=== PATIENT | male | born 1985 | race Hispanic/Latino ===

== ENCOUNTER 2019-03-07 11:59 | Emergency (ER) | payer SELFPAY ==
--- NOTE | 2019-03-07 13:18 | RAD REPORT ---
EXAM DESCRIPTION: RAD - Knee Left 3 View - 03/07/2019 12:42 pm CLINICAL HISTORY: Left knee pain after injury FINDINGS: No fracture or dislocation is seen. No significant bone or joint abnormality seen
--- NOTE | 2019-03-07 13:36 | ER ---
Nurse's Notes [facility] Name: Miguel Brumfield Age: 33 yrs Sex: Male : 1985 Arrival Date: 03/07/2019 Time: 12:02 Bed 24 Private MD: Diagnosis: Pain in left knee;Abrasion of knee-left;Blister (nonthermal) of foot-right plantar surface Presentation: 03/07 12:05 Presenting complaint: Knee pain 9/10 after wrestling with family yesterday, painful hb blister on bottom of foot x 3 days. Transition of care: patient was not received from another setting of care. Onset of symptoms was March 05, 2019. Risk Assessment: Do you want to hurt yourself or someone else? Patient reports no desire to harm self or others. Initial Sepsis Screen: Does the patient meet any 2 criteria? No. Patient's initial sepsis screen is negative. Does the patient have a suspected source of infection? No. Patient's initial sepsis screen is negative. Care prior to arrival: None. 12:05 Method Of Arrival: Wheelchair hb 12:05 Acuity: SHELL 4 hb Historical: - Allergies: 12:06 No Known Allergies; hb - PMHx: 12:06 drug abuse; hypertension-intermittantly; hb - PSHx: 12:06 None; hb - Immunization history:: Adult Immunizations up to date. - Social history:: Smoking status: Patient uses tobacco products, smokes one pack cigarettes per day. - Ebola Screening: : No symptoms or risks identified at this time. Screenin:12 Abuse screen: Denies threats or abuse. Denies injuries from another. Nutritional ca1 screening: No deficits noted. Tuberculosis screening: No symptoms or risk factors identified. Fall Risk None identified. Assessment: 12:12 General: Appears in no apparent distress. comfortable, Behavior is calm, cooperative, ca1 appropriate for age. Pain: Complains of pain in left knee Pain currently is 9 out of 10 on a pain scale. Pain began this morning Aggravated by weight bearing. Neuro: Level of Consciousness is awake, alert, obeys commands, Oriented to person, place, time, situation. Cardiovascular: Heart tones S1 S2 present Capillary refill < 3 seconds Patient's skin is warm and dry. Respiratory: Airway is patent Respiratory effort is even, unlabored, Respiratory pattern is regular, symmetrical, Breath sounds are clear bilaterally. GI: Abdomen is flat, non-distended, Bowel sounds present X 4 quads. : No deficits noted. No signs and/or symptoms were reported regarding the genitourinary system. EENT: No deficits noted. No signs and/or symptoms were reported regarding the EENT system. Derm: Skin is healthy with good turgor, Skin is pink, warm \T\ dry. Musculoskeletal: Circulation, motion, and sensation intact. Capillary refill < 3 seconds, Range of motion: limited in left knee. Injury Description: Abrasion sustained to left knee is dirty, was sustained 12-24 hours ago. 13:30 Reassessment: Patient appears in no apparent distress at this time. Patient and/or ca1 family updated on plan of care and expected duration. Pain level reassessed. Patient is alert, oriented x 3, equal unlabored respirations, skin warm/dry/pink. Vital Signs: 12:06 BP 126 / 76; Pulse 92; Resp 16; Temp 97.8; Pulse Ox 99% on R/A; Weight 81.65 kg; Height hb 5 ft. 8 in. (172.72 cm); Pain 9/10; 13:30 BP 121 / 69; Pulse 89; Resp 14 S; Temp 98(O); Pulse Ox 100% ; ca1 12:06 Body Mass Index 27.37 (81.65 kg, 172.72 cm) hb ED Course: 12:02 Patient arrived in ED. as 12:06 Triage completed. hb 12:06 Arm band placed on. hb 12:08 Mariely Wiley, RN is Primary Nurse. ca1 12:12 Patient has correct armband on for positive identification. Bed in low position. Call ca1 light in reach. Side rails up X 1. Pulse ox on. NIBP on. 12:12 No provider procedures requiring assistance completed. Patient did not have IV access ca1 during this emergency room visit. Wound care: to abrasion, located on left knee was cleaned with Hibiclens, Patient tolerated well. 12:13 Jeffrey Posada PA is PHCP. cp 12:13 Malcolm Wu MD is Attending Physician. cp 12:38 X-ray completed. Portable x-ray completed in exam room. Patient tolerated procedure jb2 well. 12:40 XRAY Knee LEFT 3 view In Process Unspecified. EDMS 13:34 Aldo Lim MD is Referral Physician. cp 13:48 Dressings: Kerlix X 1; right foot non-adherent dressing x 1 left knee 4X4s X 2; right ca1 foot. Knee immobilizer applied on left knee. 13:50 Crutch training done. ca1 Administered Medications: 13:35 Drug: Ibuprofen 800 mg Route: PO; ca1 14:01 Follow up: Response: No adverse reaction; Pain is decreased ca1 13:43 Drug: Tylenol 1000 mg Route: PO; ca1 14:01 Follow up: Response: No adverse reaction; Pain is decreased ca1 Outcome: 13:35 Discharge ordered by MD. cp 14:02 Discharged to home via wheelchair, with crutches, with significant other. ca1 14:02 Condition: stable 14:02 Discharge instructions given to patient, Instructed on discharge instructions, follow up and referral plans. medication usage, crutch walking, wound care, Demonstrated understanding of instructions, follow-up care, medications, wound care, crutch walking, Prescriptions given X 1. 14:03 Patient left the ED. ca1 Signatures: Dispatcher [employer] EDMO Evangelist Montez2 Tammie Lino Corey, PA PA Rubia Colon, RIVAS RN Mariely Wiley RN RN ca1
--- NOTE | 2019-03-07 13:36 | EDPHYS ---
Physician Documentation [facility] Name: Miguel Brumfield Age: 33 yrs Sex: Male : 1985 Arrival Date: 03/07/2019 Time: 12:02 Bed 24 Private MD: ED Physician Malcolm Wu HPI: 03/07 12:35 This 33 yrs old Male presents to ER via Wheelchair with complaints of Knee cp Injury, Foot Pain. 12:35 The patient presents with pain, that is acute. The complaints affect the left knee. cp Context: resulted from wrestling with child yesterday, the patient can fully bear weight, the patient is able to ambulate, with mild difficulty. 12:35 Patient also concerned about blister on bottom of right foot. cp Historical: - Allergies: 12:06 No Known Allergies; hb - PMHx: 12:06 drug abuse; hypertension-intermittantly; hb - PSHx: 12:06 None; hb - Immunization history:: Adult Immunizations up to date. - Social history:: Smoking status: Patient uses tobacco products, smokes one pack cigarettes per day. - Ebola Screening: : No symptoms or risks identified at this time. ROS: 12:40 Constitutional: Negative for body aches, chills, fever, poor PO intake. cp 12:40 Eyes: Negative for injury, pain, redness, and discharge. cp 12:40 ENT: Negative for drainage from ear(s), ear pain, sore throat, difficulty swallowing, difficulty handling secretions. 12:40 Cardiovascular: Negative for chest pain. 12:40 Respiratory: Negative for cough, shortness of breath, wheezing. 12:40 Abdomen/GI: Negative for abdominal pain, nausea, vomiting, and diarrhea. 12:40 MS/extremity: Positive for pain, tenderness, of the left knee. 12:40 Skin: Positive for of the plantar surface of left foot, blister. 12:40 All other systems are negative. Exam: 12:50 Constitutional: The patient appears in no acute distress, alert, awake, non-toxic, well cp developed, well nourished. 12:50 Head/Face: Normocephalic, atraumatic. cp 12:50 Musculoskeletal/extremity: ROM: limited passive range of motion due to pain, in the left knee, Joints: All joints are normal except the left knee displays painful range of motion, tenderness. 12:50 Skin: cellulitis, is not appreciated, small ulcerated wound to plantar surface of right foot w/o erythema or swelling or drainage. 12:50 Skin: injury, abrasion(s), of the left knee and left foot and right foot. cp Vital Signs: 12:06 BP 126 / 76; Pulse 92; Resp 16; Temp 97.8; Pulse Ox 99% on R/A; Weight 81.65 kg; Height hb 5 ft. 8 in. (172.72 cm); Pain 9/10; 13:30 BP 121 / 69; Pulse 89; Resp 14 S; Temp 98(O); Pulse Ox 100% ; ca1 12:06 Body Mass Index 27.37 (81.65 kg, 172.72 cm) hb Procedures: 13:30 Splinting: Splint applied to left knee using knee immobilizer, applied by nurse. cp Examined by me, post splint application: neurovascular intact, Patient tolerated well. MDM: 12:23 Patient medically screened. cp 13:35 Data reviewed: vital signs, nurses notes, radiologic studies, plain films, and as a cp result, I will discharge patient. 13:35 Differential diagnosis: dislocation, closed fracture, contusion, ligament injury. cp Counseling: I had a detailed discussion with the patient and/or guardian regarding: the historical points, exam findings, and any diagnostic results supporting the discharge/admit diagnosis, radiology results, to return to the emergency department if symptoms worsen or persist or if there are any questions or concerns that arise at home. 03/07 12:25 Order name: XRAY Knee LEFT 3 view; Complete Time: 13:31 cp 03/07 12:25 Order name: Wound Care: irrigate and clean wounds; Complete Time: 12:31 cp 03/07 13:33 Order name: Knee Immobilizer; Complete Time: 13:47 cp 03/07 13:33 Order name: Crutches; Complete Time: 13:47 cp 03/07 13:33 Order name: Wound dressing: bacitracin ointment; Complete Time: 13:47 cp Administered Medications: 13:35 Drug: Ibuprofen 800 mg Route: PO; ca1 14:01 Follow up: Response: No adverse reaction; Pain is decreased ca1 13:43 Drug: Tylenol 1000 mg Route: PO; ca1 14:01 Follow up: Response: No adverse reaction; Pain is decreased ca1 Disposition: 03/07/19 13:35 Discharged to Home. Impression: Pain in left knee, Abrasion of knee - left, Blister (nonthermal) of foot - right plantar surface. - Condition is Stable. - Discharge Instructions: Knee Immobilizer, Knee Pain, Wound Care. - Prescriptions for ketoprofen 50 mg Oral capsule - take 1 capsule by ORAL route every 6 hours; 30 capsule. - Medication Reconciliation Form, Thank You Letter, Antibiotic Education, Prescription Opioid Use, Work release form form. - Follow up: Aldo Lim MD; When: 2 - 3 days; Reason: left knee injury. - Problem is new. - Symptoms have improved. Addendum: 03/10/2019 09:09 Co-signature as Attending Physician, Malcolm Wu MD I agree with the assessment and k dr plan of care. Signatures: Dispatcher [employer] EDMS Malcolm Wu MD MD [facility] Jeffrey Posada PA PA cp Rubia Parada RN RN Mariely Wiley RN RN ca1 Corrections: (The following items were deleted from the chart) 03/07 14:03 13:35 03/07/2019 13:35 Discharged to Home. Impression: Pain in left knee; Abrasion of ca1 knee - left; Blister (nonthermal) of foot - right plantar surface. Condition is Stable. Forms are Medication Reconciliation Form, Thank You Letter, Antibiotic Education, Prescription Opioid Use. Follow up: Dr. Aldo Lim; When: 2 - 3 days; Reason: left knee injury. Problem is new. Symptoms have improved. cp
[2019-03-07] MEDS ORDERED: IBUPROFEN 400 MG TAB ONE (13:39)
[2019-03-07] MEDS ORDERED: ACETAMINOPHEN 500 MG TAB ONE (13:39)
== END 2019-03-07 14:03 | disposition home or self-care (01) ==
LOC: ER 11:59
DX: S80.212A Abrasion, left knee, initial encounter (principal); S90.821A Blister (nonthermal), right foot, initial encounter; Y93.83 Activity, rough housing and horseplay; F17.210 Nicotine dependence, cigarettes, uncomplicated
CPT/HCPCS: 99284

== ENCOUNTER 2019-03-16 12:25 | Emergency (ER) | payer SELFPAY ==
--- NOTE | 2019-03-16 12:51 | EDPHYS ---
Physician Documentation [facility] Name: Miguel Brumfield Age: 33 yrs Sex: Male : 1985 Arrival Date: 03/16/2019 Time: 12:26 Bed 11 Private MD: ED Physician Jeffrey Lora HPI: 03/16 12:50 This 33 yrs old Male presents to ER via Ambulatory with complaints of Needs kb work release. 12:50 Pt reports he was here 9 days ago because he hurt his knee and he had a blister on the kb bottom of his foot. Had a note to return to work last Sunday, but took the week off so he needs a note to return this Sunday (tomorrow). States "I didn't think I needed to follow up because I'm all good now. I healed up good." Pt has no complaints. Here for work note only. The patient has not experienced similar symptoms in the past. The patient has been recently seen at the [facility] Emergency Department, a couple of weeks ago. Historical: - Allergies: 12:49 No Known Allergies; iw - PMHx: 12:49 drug abuse; hypertension-intermittantly; iw - PSHx: 12:49 None; iw - Immunization history:: Adult Immunizations unknown. - Social history:: Smoking status: unknown. - Ebola Screening: : Patient negative for fever greater than or equal to 101.5 degrees Fahrenheit, and additional compatible Ebola Virus Disease symptoms Patient denies exposure to infectious person Patient denies travel to an Ebola-affected area in the 21 days before illness onset No symptoms or risks identified at this time. ROS: 12:50 Constitutional: Negative for fever, chills, and weight loss, Neck: Negative for injury, kb pain, and swelling, Cardiovascular: Negative for chest pain, palpitations, and edema, Respiratory: Negative for shortness of breath, cough, wheezing, and pleuritic chest pain, Abdomen/GI: Negative for abdominal pain, nausea, vomiting, diarrhea, and constipation, Back: Negative for injury and pain, MS/Extremity: Negative for injury and deformity, Skin: Negative for injury, rash, and discoloration, Neuro: Negative for headache, weakness, numbness, tingling, and seizure. Exam: 12:50 Constitutional: This is a well developed, well nourished patient who is awake, alert, kb and in no acute distress. Head/Face: Normocephalic, atraumatic. ENT: Nares patent. No nasal discharge, no septal abnormalities noted. Tympanic membranes are normal and external auditory canals are clear. Oropharynx with no redness, swelling, or masses, exudates, or evidence of obstruction, uvula midline. Mucous membranes moist. Neck: Trachea midline, no thyromegaly or masses palpated, and no cervical lymphadenopathy. Supple, full range of motion without nuchal rigidity, or vertebral point tenderness. No Meningismus. Chest/axilla: Normal chest wall appearance and motion. Nontender with no deformity. No lesions are appreciated. Cardiovascular: Regular rate and rhythm with a normal S1 and S2. No gallops, murmurs, or rubs. Normal PMI, no JVD. No pulse deficits. Respiratory: Lungs have equal breath sounds bilaterally, clear to auscultation and percussion. No rales, rhonchi or wheezes noted. No increased work of breathing, no retractions or nasal flaring. Abdomen/GI: Soft, non-tender, with normal bowel sounds. No distension or tympany. No guarding or rebound. No evidence of tenderness throughout. Skin: Warm, dry with normal turgor. Normal color with no rashes, no lesions, and no evidence of cellulitis. MS/ Extremity: Pulses equal, no cyanosis. Neurovascular intact. Full, normal range of motion. Neuro: Awake and alert, GCS 15, oriented to person, place, time, and situation. Cranial nerves II-XII grossly intact. Motor strength 5/5 in all extremities. Sensory grossly intact. Cerebellar exam normal. Normal gait. Vital Signs: 12:48 BP 130 / 74; Pulse 84; Resp 16; Pulse Ox 100% on R/A; iw MDM: 12:40 Patient medically screened. kb 12:49 Data reviewed: vital signs, nurses notes. Data interpreted: Pulse oximetry: on room air kb is 100 %. Interpretation: normal. Counseling: I had a detailed discussion with the patient and/or guardian regarding: the historical points, exam findings, and any diagnostic results supporting the discharge/admit diagnosis, the need for outpatient follow up, a family practitioner, to return to the emergency department if symptoms worsen or persist or if there are any questions or concerns that arise at home. Administered Medications: No medications were administered Disposition: 12:49 Encounter for medical release for work. kb 03/17 10:26 Co-signature as Attending Physician, Jeffrey Lora MD I agree with the assessment and martita plan of care. Disposition: 03/16/19 12:49 Discharged to Home. Impression: Encounter for screening, unspecified. - Condition is Stable. - Medication Reconciliation Form, Thank You Letter, Antibiotic Education, Prescription Opioid Use form. - Follow up: Emergency Department; When: As needed; Reason: Worsening of condition. Follow up: Private Physician; When: 2 - 3 days; Reason: Recheck today's complaints, Continuance of care, Re-evaluation by your physician. Signatures: Elen Pimentel, CHARBEL-C CHARBEL-Jeffrey Kennedy MD MD cha Williams, Irene RN RN iw Corrections: (The following items were deleted from the chart) 03/16 12:56 12:49 03/16/2019 12:49 Discharged to Home. Impression: Encounter for screening, iw unspecified. Condition is Stable. Forms are Medication Reconciliation Form, Thank You Letter, Antibiotic Education, Prescription Opioid Use. Follow up: Emergency Department; When: As needed; Reason: Worsening of condition. Follow up: Private Physician; When: 2 - 3 days; Reason: Recheck today's complaints, Continuance of care, Re-evaluation by your physician. kb
--- NOTE | 2019-03-16 12:51 | ER ---
Nurse's Notes [facility] Name: Miguel Brumfield Age: 33 yrs Sex: Male : 1985 Arrival Date: 03/16/2019 Time: 12:26 Bed 11 Private MD: Diagnosis: Encounter for screening, unspecified Presentation: 03/16 12:47 Presenting complaint: Patient states: needs a work note for this Sunday, was seen here iw last week and was told to follow up with ortho but said he was feeling better so he didn't follow up. Transition of care: patient was not received from another setting of care. Onset of symptoms was March 09, 2019. Risk Assessment: Do you want to hurt yourself or someone else? Patient reports no desire to harm self or others. Initial Sepsis Screen: Does the patient meet any 2 criteria? No. Patient's initial sepsis screen is negative. Does the patient have a suspected source of infection? No. Patient's initial sepsis screen is negative. Care prior to arrival: None. 12:47 Method Of Arrival: Ambulatory iw 12:47 Acuity: SHELL 5 iw Triage Assessment: 12:50 General: Appears in no apparent distress. Behavior is calm. iw Historical: - Allergies: 12:49 No Known Allergies; iw - PMHx: 12:49 drug abuse; hypertension-intermittantly; iw - PSHx: 12:49 None; iw - Immunization history:: Adult Immunizations unknown. - Social history:: Smoking status: unknown. - Ebola Screening: : Patient negative for fever greater than or equal to 101.5 degrees Fahrenheit, and additional compatible Ebola Virus Disease symptoms Patient denies exposure to infectious person Patient denies travel to an Ebola-affected area in the 21 days before illness onset No symptoms or risks identified at this time. Screenin:55 Abuse screen: Denies threats or abuse. Denies injuries from another. Nutritional iw screening: No deficits noted. Tuberculosis screening: No symptoms or risk factors identified. Fall Risk None identified. Assessment: 12:50 General: Appears in no apparent distress. Behavior is calm, cooperative. Pain: Denies iw pain. Neuro: Level of Consciousness is awake, alert, obeys commands, Oriented to person, place, time, situation, Moves all extremities. Cardiovascular: Patient's skin is warm and dry. Respiratory: Respiratory effort is even, unlabored, Respiratory pattern is regular. Derm: Skin is intact, is healthy with good turgor. Musculoskeletal: Range of motion: intact in all extremities. Vital Signs: 12:48 BP 130 / 74; Pulse 84; Resp 16; Pulse Ox 100% on R/A; iw ED Course: 12:26 Patient arrived in ED. as 12:39 Elen Pimentel FNP-C is [facility]. kb 12:39 Jeffrey Lora MD is Attending Physician. kb 12:45 Maddie Stokes, RN is Primary Nurse. iw 12:48 Triage completed. iw 12:49 Arm band placed on. iw 12:49 Patient has correct armband on for positive identification. iw 12:55 No provider procedures requiring assistance completed. Patient did not have IV access iw during this emergency room visit. Administered Medications: No medications were administered Outcome: 12:49 Discharge ordered by MD. kb 12:55 Following a medical screening exam, the patient was provided information regarding iw alternative care sites and resources available per registration personnel. 12:55 Medical screen evaluation completed per provider. Patient declined treatment. iw 12:55 Condition: good 12:56 Patient left the ED. iw Signatures: Elen Pimentel FNP-C FNP-Tammie Navas as Maddie Stokes, RN RN iw
== END 2019-03-16 12:56 | disposition home or self-care (01) ==
LOC: ER 12:25
DX: Z00.8 Encounter for other general examination (principal); I10 Essential (primary) hypertension; F19.11 Other psychoactive substance abuse, in remission
CPT/HCPCS: 99281

== ENCOUNTER 2021-05-12 13:16 | Emergency (ER) | payer SELFPAY ==
[2021-05-12] MEDS ORDERED: KETOROLAC 30 MG/ML INJ ONE (13:59)
--- NOTE | 2021-05-12 14:51 | RAD REPORT ---
EXAM DESCRIPTION: RAD - Ribs Left - 05/12/2021 2:13 pm CLINICAL HISTORY: Left-sided rib pain following coughing COMPARISON: None. FINDINGS: No displaced rib fracture is seen and no non-displaced rib fractures suspected. No aggress audie rib lesion. No underlying pneumothorax, effusion, infiltrate or pulmonary contusion. IMPRESSION: Negative left rib series.
--- NOTE | 2021-05-12 16:14 | ER ---
Nurse's Notes [facility] Name: Miguel Brumfield Age: 35 yrs Sex: Male : 1985 Arrival Date: 05/12/2021 Time: 13:17 Bed 7 Private MD: Diagnosis: Intercostal Strain Presentation: 05/12 13:22 Chief complaint: Patient states: LUQ/left rib pain x 3 days, hurts worse with coughing jl7 or sneezing or taking a deep breath in, denies trauma, reports covid positive x 15 days ago. Coronavirus screen: Vaccine status: Patient reports being unvaccinated. At this time, the client does not indicate any symptoms associated with coronavirus-19. Ebola Screen: No symptoms or risks identified at this time. Initial Sepsis Screen: Does the patient meet any 2 criteria? No. Patient's initial sepsis screen is negative. Does the patient have a suspected source of infection? No. Patient's initial sepsis screen is negative. Risk Assessment: Do you want to hurt yourself or someone else? Patient reports no desire to harm self or others. Onset of symptoms was May 09, 2021. 13:22 Method Of Arrival: Ambulatory [facility] 13:22 Acuity: SHELL 3 jl7 Triage Assessment: 13:25 General: Appears in no apparent distress. uncomfortable, Behavior is calm, cooperative. jl7 Pain: Complains of pain in anterior aspect of right lateral abdomen and left upper quadrant Pain currently is 7 out of 10 on a pain scale. Historical: - Allergies: 13:25 No Known Allergies; jl7 - Home Meds: 13:25 None [Active]; jl7 - PMHx: 13:25 drug abuse; hypertension-intermittantly; jl7 - PSHx: 13:25 None; jl7 - Immunization history:: Adult Immunizations not up to date, Client reports having NOT received the Covid vaccine. - Social history:: Smoking status: Patient denies any tobacco usage or history of. Patient uses alcohol, on a daily basis. street drugs, marijuana. Screenin:27 Abuse screen: Denies threats or abuse. Denies injuries from another. Nutritional ld1 screening: No deficits noted. Tuberculosis screening: No symptoms or risk factors identified. Fall Risk None identified. Assessment: 13:40 General: Appears comfortable, Behavior is calm, cooperative. Pain: Complains of pain in aa5 anterior aspect of left lateral abdomen, left lower rib cage Pain currently is 7 out of 10 on a pain scale. Quality of pain is described as sharp, Is intermittent, Aggravated by coughing, taking a deep breath. Neuro: Level of Consciousness is awake, alert, obeys commands, Oriented to person, place, time, situation. Cardiovascular: Patient's skin is warm and dry. Respiratory: Airway is patent Respiratory effort is even, unlabored, Respiratory pattern is regular, symmetrical. GI: No signs and/or symptoms were reported involving the gastrointestinal system. Patient currently denies diarrhea, nausea, vomiting. : No signs and/or symptoms were reported regarding the genitourinary system. Denies burning with urination, inability to void, urinary frequency, urgency. EENT: No signs and/or symptoms were reported regarding the EENT system. Derm: Skin is pink, warm \T\ dry. Musculoskeletal: Range of motion: intact in all extremities. 15:11 Reassessment: Patient is alert, oriented x 3, equal unlabored respirations, skin aa5 warm/dry/pink. Patient states symptoms have not improved. 16:26 Reassessment: Patient appears in no apparent distress at this time. Patient and/or ld1 family updated on plan of care and expected duration. Pain level reassessed. Vital Signs: 13:22 BP 132 / 79; Pulse 93; Resp 17; Temp 97.6; Pulse Ox 100% ; Weight 81.65 kg; Height 5 jl7 ft. 8 in. (172.72 cm); Pain 7/10; 16:26 BP 129 / 77; Pulse 88; Resp 18; Pulse Ox 100% on R/A; ld1 13:22 Body Mass Index 27.37 (81.65 kg, 172.72 cm) jl7 ED Course: 13:17 Patient arrived in ED. am2 13:20 Demetrio Díaz PA is PHCP. [facility] 13:20 Jeffrey Lora MD is Attending Physician. jmm 13:25 Triage completed. jl7 13:25 Arm band placed on right wrist. jl7 13:32 Pricilla Kaiser, RIVAS is Primary Nurse. aa5 14:11 Ribs Left XRAY In Process Unspecified. EDMS 16:27 Patient has correct armband on for positive identification. Placed in gown. Bed in low ld1 position. Call light in reach. Side rails up X2. Pulse ox on. NIBP on. 16:27 No provider procedures requiring assistance completed. Patient did not have IV access ld1 during this emergency room visit. Administered Medications: 13:38 Drug: Ketorolac 30 mg Route: IM; Site: right gluteus; aa5 14:00 Follow up: Response: No adverse reaction aa5 Outcome: 16:14 Discharge ordered by MD. crenshaw 16:27 Discharged to home ambulatory. ld1 16:27 Condition: stable 16:27 Discharge instructions given to patient, Instructed on discharge instructions, follow up and referral plans. medication usage, Demonstrated understanding of instructions, follow-up care, medications, Prescriptions given X 1. 16:28 Patient left the ED. ld1 Signatures: Dispatcher [employer] EDMS Demetrio Díaz PA PA jmm Calderon, Audri, RN RN aa5 Yenni Addison RN RN jl7 Litzy Wills am2 Leora Ramsey RN RN ld1
--- NOTE | 2021-05-12 16:15 | EDPHYS ---
Physician Documentation [facility] Name: Miguel Brumfield Age: 35 yrs Sex: Male : 1985 Arrival Date: 05/12/2021 Time: 13:17 Bed 7 Private MD: MACKENZIE Physician Jeffrey Lora HPI: 05/12 13:30 This 35 yrs old Male presents to ER via Ambulatory with complaints of Flank jmm Pain - left. 13:30 The patient complains of pain in the left flank. The pain does not radiate. Onset: The jmm symptoms/episode began/occurred acutely, 2 day(s) ago. This is a 35-year-old male with history of hypertension the presents emerged part with complaints of left flank and rib pain beginning after he states he took a deep it off marijuana joint. Patient states that since then he has had pain on deep inspiration and coughing. Denies vomiting, hematuria, fever, abdominal pain.. Historical: - Allergies: 13:25 No Known Allergies; jl7 - Home Meds: 13:25 None [Active]; jl7 - PMHx: 13:25 drug abuse; hypertension-intermittantly; jl7 - PSHx: 13:25 None; jl7 - Immunization history:: Adult Immunizations not up to date, Client reports having NOT received the Covid vaccine. - Social history:: Smoking status: Patient denies any tobacco usage or history of. Patient uses alcohol, on a daily basis. street drugs, marijuana. ROS: 13:30 Constitutional: Negative for fever, chills, and weight loss, Cardiovascular: Negative jmm for chest pain, palpitations, and edema, Respiratory: Negative for shortness of breath, cough, wheezing, and pleuritic chest pain, Abdomen/GI: Negative for abdominal pain, nausea, vomiting, diarrhea, and constipation. 13:30 Back: Positive for flank pain. 13:30 All other systems are negative. Exam: 13:30 Constitutional: This is a well developed, well nourished patient who is awake, alert, jmm and in no acute distress. Head/Face: atraumatic. Eyes: EOMI, no conjunctival erythema appreciated ENT: Moist Mucus Membranes Neck: Trachea midline, Supple 13:30 Respiratory: Normal respirations, no respiratory distress appreciated Abdomen/GI: Non distended, soft Back: Normal ROM Skin: General appearance color normal MS/ Extremity: Moves all extremities, no obvious deformities appreciated, no edema noted to the lower extremities Neuro: Awake and alert, normal gait Psych: Behavior is normal, Mood is normal, Patient is cooperative and pleasant 13:30 Cardiovascular: Left left lateral rib pain on palpation. Vital Signs: 13:22 BP 132 / 79; Pulse 93; Resp 17; Temp 97.6; Pulse Ox 100% ; Weight 81.65 kg; Height 5 jl7 ft. 8 in. (172.72 cm); Pain 7/10; 16:26 BP 129 / 77; Pulse 88; Resp 18; Pulse Ox 100% on R/A; ld1 13:22 Body Mass Index 27.37 (81.65 kg, 172.72 cm) jl7 MDM: 13:30 Patient medically screened. [facility] 16:10 Data reviewed: vital signs, nurses notes. Counseling: I had a detailed discussion with flower the patient and/or guardian regarding: the historical points, exam findings, and any diagnostic results supporting the discharge/admit diagnosis, radiology results, the need for outpatient follow up, to return to the emergency department if symptoms worsen or persist or if there are any questions or concerns that arise at home. ED course: Physical exam physical exam and history most likely consistent with a rib injury, x-rays negative but may be due to a strain of the intercostal muscles. Patient has no abdominal pain, hematuria, vomiting, I do not currently suspect kidney stone or ureteral stone but patient is advised to return to the ED if symptoms worsen or if he develops any other symptoms. Patient understood and agrees plan of care. 05/12 13:31 Order name: Ribs Left XRAY; Complete Time: 15:[address] [facility] Administered Medications: 13:38 Drug: Ketorolac 30 mg Route: IM; Site: right gluteus; aa5 14:00 Follow up: Response: No adverse reaction aa5 Disposition Summary: 05/12/21 16:14 Discharge Ordered Location: Home flower Condition: Stable flower Diagnosis - Intercostal Strain magnolia Followup: flower - With: Private Physician - When: 2 - 3 days - Reason: Recheck today's complaints, Continuance of care, Re-evaluation by your physician Discharge Instructions: - Discharge Summary Sheet flower - Rib Contusion magnolia Forms: - Medication Reconciliation Form flower - Thank You Letter jmyoung - Antibiotic Education flower - Prescription Opioid Use [facility] Prescriptions: - orphenadrine citrate 100 mg Oral Tablet Sustained Release - take 1 tablet by ORAL route 2 times per day As needed; 20 tablet; Refills: 0, flower Product Selection Permitted Addendum: 05/16/2021 06:57 Co-signature as Attending Physician, Jeffrey Lora MD I agree with the assessment and c velazco plan of care. Signatures: Dispatcher [employer] EDJeffrey Whitley MD MD cha Mickail, Joel, PA PA jmm Calderon, Audri, RN RN aa5 Yenni Addison RN RN jl7
[2021-05-12 16:43] VITALS: TEMP 97.6; O2SAT 100
[2021-05-12 16:44] VITALS: BP 129/77
== END 2021-05-12 16:28 | disposition home or self-care (01) ==
LOC: ER 13:16
DX: S29.019A Strain of muscle and tendon of unspecified wall of thorax, initial encounter (principal)
CPT/HCPCS: 96372; 99284

== ENCOUNTER 2024-07-26 17:45 | Emergency (ER) | payer OTHER, SELFPAY ==
--- OUTSIDE RECORDS SUMMARY | 2024-07-26 17:48 | XMS REPORT | Continuity of Care Document ---
Author Name Unknown Address [address] [place] [address]. [address] [employer] Address [address] [place] [address]. 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
[2024-07-26] MEDS ORDERED: FLUORESCEIN SODIUM 1 MG/WRAP ONE (18:02)
[2024-07-26] MEDS ORDERED: TETRACAINE HCL 0.5% 4ML OPTH ONE (18:02)
[2024-07-26] MEDS ORDERED: ACETAMINOPHEN 500 MG TAB ONE (18:25)
[2024-07-26] MEDS ORDERED: IBUPROFEN 400 MG TAB ONE (18:25)
--- NOTE | 2024-07-26 19:56 | EDPHYS ---
Physician Documentation [facility] Name: Miguel Brumfield Age: 39 yrs Sex: Male : 1985 Arrival Date: 07/26/2024 Time: 17:45 Bed 10 Private MD: ED Physician Jeffrey Lora HPI: 07/26 18:05 This 39 yrs old Male presents to ER via Ambulatory with complaints of Eye cp Injury. 18:05 The patient sustained a scratch. cp 18:05 Onset: The symptoms/episode began/occurred last night, after accidentally poking eye cp with finger. 18:05 Associated signs and symptoms: Pertinent negatives: chills, ear ache, fever, headache. cp Patient wears glasses. Severity of symptoms: in the emergency department the symptoms are unchanged despite home interventions. Historical: - Allergies: 18:04 No Known Allergies; iw - PMHx: 18:04 drug abuse; hypertension-intermittantly; iw - Immunization history:: Adult Immunizations not up to date. - Infectious Disease History:: Denies. - Social history:: Smoking status: Patient reports the use of cigarette tobacco products, smokes one pack cigarettes per day. ROS: 18:10 Constitutional: Negative for body aches, chills, fever, poor PO intake, cp 18:10 Eyes: Positive for blurry vision, pain, redness, of the left eye, 18:10 Skin: Negative for rash, 18:10 Neuro: Negative for altered mental status, headache, 18:10 All other systems are negative, cp Exam: 18:15 Constitutional: The patient appears in no acute distress, alert, awake, non-toxic, well cp developed, well nourished, uncomfortable, 18:15 Head/Face: Normocephalic, atraumatic. cp 18:15 Eyes: Periorbital structures: appear normal, Pupils: equal, round, and reactive to light and accomodation, Extraocular movements: intact throughout, Conjunctiva: injected, in the left eye, Corneas: abrasion, that is small, superior aspect of cornea, foreign body, is not appreciated, a fluorescein strip employed to appreciate the findings, Lids and lashes: appear normal, bilaterally, Examination of the other eye reveals no obvious gross abnormality, 18:15 ENT: External ear(s): are unremarkable, Nose: is normal, Mouth: Lips: moist, Oral mucosa: moist, Posterior pharynx: Airway: no evidence of obstruction, patent, 18:15 Chest/axilla: Inspection: normal, 18:15 Cardiovascular: Rate: normal, 18:15 Respiratory: the patient does not display signs of respiratory distress, Respirations: normal, no use of accessory muscles, no retractions, labored breathing, is not present, Breath sounds: are clear throughout, Vital Signs: 18:03 Pulse 98; Resp 16; Temp 99.4; Pulse Ox 98% ; Weight 72.57 kg; Height 5 ft. 8 in. ; Pain iw 03/15; 18:03 Body Mass Index 24.33 (72.57 kg, 172.72 cm) iw 18:03 Pain Scale: Adult iw Visual Acuity: 19:38 Left Eye Visual acuity 20/15, Normal, React To Light; Right Eye Visual acuity 20/30, vc1 Normal, React To Light; Both Eyes Visual acuity 20/20; With Lenses; MDM: 18:03 Medical Screening Exam initiated cp 18:30 Differential diagnosis: Corneal abrasion of Corneal ulcer of Foreign body in Acute cp iritis of Ultraviolet keratitis in. 19:55 Data reviewed: vital signs, nurses notes, and as a result, I will discharge patient. cp 19:55 I considered the following discharge prescriptions or medication management in the emergency department Medications were administered in the Emergency Department. See MAR. Counseling: I had a detailed discussion with the patient and/or guardian regarding the historical points, exam findings, and any diagnostic results supporting the discharge/admit diagnosis, the need for outpatient follow up, an opthalmologist, to return to the emergency department if symptoms worsen or persist or if there are any questions or concerns that arise at home. Response to treatment: the patient's symptoms have mildly improved after treatment, and as a result, I will discharge patient. 07/26 18:03 Order name: Eye Tray; Complete Time: 18: cp 07/26 18:03 Order name: Fluoresene Opth strip; Complete Time: 18:07 cp 07/26 18:03 Order name: Visual Acuity; Complete Time: 19:39 cp Administered Medications: 18:31 Drug: Acetaminophen PO 1000 mg PO once Route: PO; iw 19:59 Follow up: Response: No adverse reaction cp4 18:31 Drug: Ibuprofen PO 800 mg PO once Route: PO; iw 19:59 Follow up: Response: No adverse reaction; Pain is decreased cp4 20:00 Drug: Tetracaine Ophthalmic Drops 0.5 % 1 drops Ophthalmic once Route: Ophthalmic; cp4 Site: left eye; 20:04 Follow up: Response: No adverse reaction cp4 20:11 Drug: Gentamicin Ophthalmic Drops 0.3 % 2 drops Ophthalmic once; 1 drop in left eye vc1 every 4 hours while awake for 5-7 days Route: Ophthalmic; Site: left eye; 20:11 Follow up: Response: No adverse reaction vc1 Disposition: 07/27 18:28 Chart complete. cp Disposition Summary: 07/26/24 19:56 Discharge Ordered Notes: Location: Home cp Problem: new cp Symptoms: have improved cp Condition: Stable cp Diagnosis - Injury of conjunctiva and corneal abrasion without foreign body, left eye cp Followup: cp - With: Moreno Morales MD - When: 2 - 3 days - Reason: Recheck today's complaints Discharge Instructions: - Discharge Summary Sheet cp - Corneal Abrasion cp Forms: - Medication Reconciliation Form cp - Antibiotic Education cp - Prescription Opioid Use cp - Patient Portal Instructions cp - Leadership Thank You Letter cp - Work release form vc1 Prescriptions: - Anaprox DS 550 mg Oral Tablet - take 1 tablet ORAL route every 12 hours As needed; 20 tablet; Refills: 0, cp Product Selection Permitted - Gentamicin 0.3 % Ophthalmic drops - instill 1 drop OPHTHALMIC route every 4 hours for 7 days; 1 unit; Refills: 0, cp Product Selection Permitted Addendum: 07/31/2024 12:45 Co-signature as Attending Physician, Jeffrey Lora MD I agree with the assessment and c velazco plan of care. Signatures: Jeffrey Lora MD MD cha Williams, Irene RN Jeffrey Espinoza PA PA cp Calcote, Vanessa, RN RN vc1 Joan Randall cp4 Corrections: (The following items were deleted from the chart) 07/27 18:15 18:14 Eyes: Positive for blurry vision, pain, redness, of the left eye, cp cp 18:15 18:14 Skin: Negative for rash, cp cp 18:15 18:14 Neuro: Negative for altered mental status, headache, cp cp 18:15 18:14 Constitutional: Negative for body aches, chills, fever, poor PO intake, cp cp
--- NOTE | 2024-07-26 19:56 | ER ---
Nurse's Notes [facility] Name: Miguel Brumfield Age: 39 yrs Sex: Male : 1985 Arrival Date: 07/26/2024 Time: 17:45 Bed 10 Private MD: Diagnosis: Injury of conjunctiva and corneal abrasion without foreign body, left eye Presentation: 07/26 18:03 Chief complaint: Patient states: poked his left eye with his finger last night. iw Coronavirus screen: At this time, the client does not indicate any symptoms associated with coronavirus-19. Ebola Screen: No symptoms or risks identified at this time. The patient denies any loss of vision. Initial Sepsis Screen: Does the patient meet any 2 criteria? No. Patient's initial sepsis screen is negative. Does the patient have a suspected source of infection? No. Patient's initial sepsis screen is negative. Risk Assessment: Do you want to hurt yourself or someone else? Patient reports no desire to harm self or others. Onset of symptoms was July 26, 2024. 18:03 Acuity: SHELL 4 iw 18:03 Method Of Arrival: Ambulatory iw 20:11 Mechanism of Injury: No Mechanism of Injury. vc1 Historical: - Allergies: 18:04 No Known Allergies; iw - PMHx: 18:04 drug abuse; hypertension-intermittantly; iw - Immunization history:: Adult Immunizations not up to date. - Infectious Disease History:: Denies. - Social history:: Smoking status: Patient reports the use of cigarette tobacco products, smokes one pack cigarettes per day. Screenin:00 [facility] ED Fall Risk Assessment (Adult) History of falling in the last 3 months, cp4 including since admission No falls in past 3 months (0 pts) Confusion or Disorientation No (0 pts) Intoxicated or Sedated No (0 pts) Impaired Gait No (0 pts) Mobility Assist Device Used No (0 pt) Altered Elimination No (0 pt) Score/Fall Risk Level 0 - 2 = Low Risk Oriented to surroundings, Maintained a safe environment, Assessed \T\ reinforced patient's understanding of fall precautions, Hourly rounding (assess needs \T\ fall precautionary measures) done. Abuse screen: Denies threats or abuse. Nutritional screening: No deficits noted. Tuberculosis screening: No symptoms or risk factors identified. Assessment: 20:00 General: Appears in no apparent distress. uncomfortable, Behavior is calm, cooperative, cp4 appropriate for age. Pain: Complains of pain in left eye Pain currently is 6 out of 10 on a pain scale. Neuro: Level of Consciousness is awake, alert, obeys commands, Oriented to person, place, time, situation. Cardiovascular: Patient's skin is warm and dry. Respiratory: Airway is patent Respiratory effort is even, unlabored. GI: No signs and/or symptoms were reported involving the gastrointestinal system. : No signs and/or symptoms were reported regarding the genitourinary system. EENT: Eyes are tearing on outer aspect of conjuctiva of left eye, iris of left eye and inner aspect of conjunctiva of left eye Sclera/Cornea are reddened in outer aspect of conjuctiva of left eye, iris of left eye and inner aspect of conjunctiva of left eye. Derm: No signs and/or symptoms reported regarding the dermatologic system. Musculoskeletal: No signs and/or symptoms reported regarding the musculoskeletal system. Vital Signs: 18:03 Pulse 98; Resp 16; Temp 99.4; Pulse Ox 98% ; Weight 72.57 kg; Height 5 ft. 8 in. ; Pain iw 8; 18:03 Body Mass Index 24.33 (72.57 kg, 172.72 cm) iw 18:03 Pain Scale: Adult iw Visual Acuity: 19:38 Left Eye Visual acuity 20/15, Normal, React To Light; Right Eye Visual acuity 20/30, vc1 Normal, React To Light; Both Eyes Visual acuity 20/20; With Lenses; ED Course: 17:48 Patient arrived in ED. jj6 18:00 Jeffrey Posada PA is PHCP. cp 18:00 Jeffrey Lora MD is Attending Physician. cp 18:02 Maddie Stokes, RIVAS is Primary Nurse. iw 18:03 Triage completed. iw 18:04 Arm band placed on. iw 19:56 Moreno Morales MD is Referral Physician. cp 20:00 Bed in low position. Call light in reach. Side rails up X 1. Provided Education on: eye cp4 pain. 20:00 Assist provider with eye exam of left eye. using fluorescein stain, Performed by Jeffrey roth4 Swetha DAVENPORT Patient tolerated well. 20:11 Patient did not have IV access during this emergency room visit. vc1 Administered Medications: 18:31 Drug: Acetaminophen PO 1000 mg PO once Route: PO; iw 19:59 Follow up: Response: No adverse reaction cp4 18:31 Drug: Ibuprofen PO 800 mg PO once Route: PO; iw 19:59 Follow up: Response: No adverse reaction; Pain is decreased cp4 20:00 Drug: Tetracaine Ophthalmic Drops 0.5 % 1 drops Ophthalmic once Route: Ophthalmic; cp4 Site: left eye; 20:04 Follow up: Response: No adverse reaction cp4 20:11 Drug: Gentamicin Ophthalmic Drops 0.3 % 2 drops Ophthalmic once; 1 drop in left eye vc1 every 4 hours while awake for 5-7 days Route: Ophthalmic; Site: left eye; 20:11 Follow up: Response: No adverse reaction vc1 Medication: 20:00 VIS not applicable for this client. cp4 Outcome: 19:56 Discharge ordered by MD. cp 20:11 Discharged to home ambulatory, vc1 20:11 Condition: stable 20:11 Discharge instructions given to patient, Instructed on discharge instructions, follow up and referral plans. medication usage, Demonstrated understanding of instructions, follow-up care, medications, Prescriptions given X 2, 20:12 Patient left the ED. vc1 Signatures: Maddie Stokes, RN RN iw Jeffrey Posada PA PA cp Uyen [id number] Leni Styles RN RN vc1 Joan Randall cp4
[2024-07-26] MEDS ORDERED: GENTAMICIN 0.3% OPTH DROP 5ML ONE (20:01)
[2024-07-26 20:19] VITALS: TEMP 99.4; O2SAT 98
== END 2024-07-26 20:12 | disposition home or self-care (01) ==
LOC: ER 17:45
DX: S05.02XA Injury of conjunctiva and corneal abrasion without foreign body, left eye, initial encounter (principal); F17.210 Nicotine dependence, cigarettes, uncomplicated
CPT/HCPCS: 99284